=== PATIENT | female | born 1990 | race Hispanic/Latino ===

== ENCOUNTER 2021-04-24 17:14 | Inpatient (IN) | payer BC ==
[2021-04-24] MEDS ORDERED: Ringers Lactate 1,000 ML IV PRN (18:11)
[2021-04-24] MEDS ORDERED: CARBOPROST TROME 250 MCG/ML IM PRN (18:11)
[2021-04-24] MEDS ORDERED: PROMETHAZINE INJ 25 MG/ML AMP IM PRN ×2 (18:11)
[2021-04-24] MEDS ORDERED: METHYLERGONOVINE 0.2MG/ML AMP IM PRN (18:11)
[2021-04-24] MEDS ORDERED: BUTORPHANOL 1 MG/ML INJ IV PRN (18:11)
[2021-04-24 18:36] VITALS: BMI 33.1
--- NOTE | 2021-04-24 18:50 | RAD REPORT ---
EXAM DESCRIPTION: RAD - Abdomen Single View - 04/24/2021 6:33 pm CLINICAL HISTORY: position Pain COMPARISON: No comparisons FINDINGS: position is cephalic with spine to the maternal left.
[2021-04-24] MEDS ORDERED: Ringers Lactate 1,000 ML IV SCH (19:00)
[2021-04-24] MEDS ORDERED: OXYTOCIN/LR 20 UNITS/1,000 ML BAG IV SCH (19:00)
[2021-04-24 19:16] LABS: Absolute Lymphocytes (CBC) 1.7 K/uL (0.7-4.9); Basophils % 0.5 % (0-1.3); Hematocrit 36.3 % (36.0-45.0); Lymphocytes % 13.3 % (15.3-44.8); MPV 9.3 fL (7.6-11.3); RBC Red Blood Cell Count 4.54 M/uL (3.86-4.86)
[2021-04-24 22:56] LABS: Urine Appearance CLEAR (Clear); Urine Bilirubin NEGATIVE (Negative); Urine Blood 3+ (Negative); Urine Color YELLOW (Yellow); Urine Glucose NEGATIVE (Negative); Urine Protein NEGATIVE (Negative); Urine Urobilinogen 0.2 mg/dL (0.2-1.0)
[2021-04-25] LABS: Urine Bacteria <20 /HPF (<20); Urine RBC 20-50 /HPF (NONE SEEN); Urine Urothelial Cells <5 /HPF (NONE SEEN)
[2021-04-25] MEDS ORDERED: LIDOCAINE 1% MPF 30 ML VIAL ONE (00:34)
[2021-04-25] MEDS ORDERED: DOCUSATE NA/SENNA CONC 1 TAB PO PRN (03:14)
[2021-04-25] MEDS ORDERED: Oxycodone HCl/Acetaminophen 1 TAB TAB PO PRN ×2 (03:14)
[2021-04-25] MEDS ORDERED: CARBOPROST TROME 250 MCG/ML IM PRN (03:14)
[2021-04-25] MEDS ORDERED: DIPHENHYDRAMINE 25 MG TAB/CAP PO PRN (03:14)
[2021-04-25] MEDS ORDERED: BISACODYL 10 MG RECTAL SUPP PR PRN (03:14)
[2021-04-25] MEDS ORDERED: ACETAMINOPHEN 500 MG TAB PO PRN (03:14)
[2021-04-25] MEDS ORDERED: OXYTOCIN/LR 20 UNIT/1,000 ML BAG IV SCH (04:00)
[2021-04-25] MEDS: IBUPROFEN 200 MG TAB PO PRN (07:24)
[2021-04-25] MEDS ORDERED: SODIUM BICARB 325 MG TAB PO PRN (07:30)
--- NOTE | 2021-04-25 10:55 | PN ---
The patient is afebrile, ambulating, voiding. Lochia is normal. talk and dismissal instr uctions given. We will go over again tomorrow. She is Rh positive, immune to Rubella. Negative str ep. 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 If grants specialist lets the baby to go home later this afternoon, I will let her go home since she is doing well. No problems this morning . Again, suggested Tdap administration. The patient seems to be hesitant. We have gone over this s everal times. Flu shot in my office also offered if she wishes. No complaints or problems this morn ing. COLLEEN/CHARLEY Voice ID: [id number] Report ID: [id number]
[2021-04-25 23:10] LABS: RPR (Rapid Plasma Reagin) NON-REACT (NON-REACT)
[2021-04-26] MEDS: IBUPROFEN 200 MG TAB PO PRN ×2 (02:51→11:09)
--- NOTE | 2021-04-26 09:43 | DS ---
Hospital Course: A 31-year-old, primigravida, at 40 weeks 2 days, came in spontaneous labor. Delive red a 6-pound 3-ounce male , Apgars 9 and 9. Local infiltration for repair of small first-degr ee laceration requiring about 5 stitches. Schultze delivery of the placenta, inspected, and noted to be intact. 350 mL estimated blood loss. Rh positive, immune to rubella, negative strep, negative C OVID. afebrile, ambulating, voiding. Lochia is normal. The patient will be dismissed la ter today to report back to my office in 6 weeks for followup to report any temperature elevation of 100 degrees or greater, severe pain, heavy bleeding, or any other type of abnormalities. Once again offered a Tdap shot which she has been offered several times during the and she knows she c an drive by the office and get a flu shot if she wishes. COVID vaccination has also been discussed w ith the patient. She requests no analgesics on dismissal. Final Diagnoses: Intrauterine gestation, 40 weeks 2 days, spontaneous labor, vaginal delivery. Tdap offered. COLLEEN/CHARLEY Voice ID: [id number] Report ID: [id number]
[2021-04-26 12:22] VITALS: BP 121/72; TEMP 98.2
[2021-04-26] MEDS ORDERED: Tdap (Diph,Pertuss(Acell),Tet Vac) 0.5 ML SYR IMVAC ONE (13:36)
[2021-04-28 03:34] LABS: HBsAG Nonreactive (Nonreactive)
--- NOTE | 2021-05-02 08:24 | PREOPHP ---
Date of Admission: 04/24/2021 History Of Present Illness: Jenny Guzmán is a 31-year-old, primigravida, at 40 weeks 2 days, came in with spontaneous labor. Admitted for stabilization and delivery. Family History: Noncontributory. Past Medical History: Noncontributory. Allergies: NO ALLERGIES. Medications: No medications prior to admission other than vitamins and iron. Physical Examination: HEENT: Clear. Pupils equal, round, and reactive to light and accommodation. Conjunctivae well perf used. No oral, lingual, buccal lesions. Chest and Lungs: Clear. Heart: Without murmurs, thrills, heaves, or rubs. Breasts: Without masses on previous visits. Abdomen: Term size. Extremities: Clear without edema, cyanosis, or clubbing. Assessment And Plan: Admit for delivery. COLLEEN/CHARLEY Voice ID: [id number]
--- NOTE | 2021-05-02 08:44 | PREOPHP ---
Date of Admission: 04/24/2021 History Of Present Illness: A 31-year-old 1, para 0, 40 weeks 2 days, without com plications, came in with rupture of membranes, only 1 cm dilated, started on Pitocin. Has had Stadol 1 mg IV, Phenergan 25 mg IM during the labor, otherwise is using Lamaze breathing techniques to best advantage. She is now approximately 9 cm, has an anterior cervical lip, but the baby is still poste rior, -0 station. We will start her doing pelvic rocks, so the baby rotates, and then, I think it wi ll come much quicker. Family History: Noncontributory. Past Medical History: Breast augmentation surgery, otherwise, no other surgeries. Allergies: NO ALLERGIES. Medications: No medicines prior to admission other than vitamins and iron. Social History: Does not smoke. Physical Examination: HEENT: Clear. Pupils equal, round, and reactive to light and accommodation. Conjunctivae well perf used. No oral, lingual, or buccal lesions. Chest: Clear. Heart: Without murmurs, thrills, heaves, or rubs. Breasts: Without masses on previous visits. Abdomen: Term size. Extremities: Clear. Pelvic Exam: As stated. Anticipate delivery relatively soon. She is strep negative. COVID negative. Rh positive. Immune to rubella. COLLEEN/CHARLEY Voice ID: [id number]
--- NOTE | 2021-05-02 08:50 | OP ---
Surgeon: Masoud Bueno MD Procedure In Detail: -year-old primigravida, 40 weeks 2 days, came in with spontaneous ru pture of membranes, 1 cm on admission. Rh positive. Immune to rubella. Negative strep. Negative C OVID. Started on Pitocin. Had Stadol 1 mg IV, Phenergan 25 mg IM during the labor, otherwise Lamaze breathing techniques. Noted to be occiput posterior. When she reached 10 cm, began to push and the baby spontaneously rotated. Second stage of only 15 minutes or so. Spontaneous vaginal delivery of a 6-pound 3-ounce male . Nuchal cord x1 loosely. Apgars 9 and 9. Small first-degree lacerat ion on the left side of the introitus. Local infiltration. 2-0 chromic running locked stitch, about 5 stitches. Schultze delivery of the placenta, which was inspected and noted to be intact and jaimie l. Estimated blood loss 350 cc to this point. Tolerated all procedures well. Final Diagnoses: Term intrauterine , 40 weeks 2 days, spontaneous rupture of membranes, vag inal delivery. NBC/MODL Voice ID: [id number] Report ID: [id number]
== END 2021-04-26 14:35 | disposition home or self-care (01) | DRG 807 ==
LOC: L&D 17:14 → 2ND-WC 17:43
PROVIDERS: ADMIT Specialist; ATTEND Specialist
PROC: 10E0XZZ Delivery of Products of Conception, External Approach (ICD-10-PCS; principal; 2021-04-25)
PROC: 0HQ9XZZ Repair Perineum Skin, External Approach (ICD-10-PCS; 2021-04-25)
DX: O70.0 First degree perineal laceration during delivery (principal); Z37.0 Single live birth; Z3A.40 40 weeks gestation of pregnancy; Z20.822 Contact with and (suspected) exposure to COVID-19
CPT/HCPCS: 36415; 74018; 81001; 85025; 86592; 86901; 87340; 90471; 90715; J0595; J2210; J2550; J2590; J7120; U0003